=== PATIENT | male | born 1995 | race Caucasian/White ===

== ENCOUNTER 2018-04-15 20:00 | Emergency (ER) | payer OTHER ==
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
[2018-04-15 20:48] VITALS: BP 127/84; PULSE 93; RESP 18; TEMP 97.8; O2SAT 100
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
== END 2018-04-15 21:25 | disposition home or self-care (01) ==
LOC: ED 20:00
DX: S39.012A Strain of muscle, fascia and tendon of lower back, initial encounter (principal); V49.9XXA Car occupant (driver) (passenger) injured in unspecified traffic accident, initial encounter